=== PATIENT | female | born 1975 | race African-American/Black ===

== ENCOUNTER → 2018-11-15 | Outpatient (CLI) | payer MEDICARE, MEDICAID ==
[~2018-11-15] MED LIST: ALPR2TAB2 PO; AZAT50TA PO; BACL10TA PO; CHOL200074 PO; CYCL10TA2 PO; FAMO20TA5 PO; FENT1PAT13 TP; GABA300C18 PO; HYDR200T5 PO; HYDR200T71 PO; LINZESS145 MCG PO; MELO7.5T29 PO; METF500T16 PO; METO-239 PO; MOME13HF2 IH; OMEP20TA8 PO; OXYC1TAB15 PO; PRED2.5T PO; TRAM50TA PO; VALA1000 PO; ZOLP10TA PO
[2018-11-15 11:55] VITALS: BP 105/61
[2018-11-15 13:55] LABS: BASO % 1 % (0-3); EOS # 0.1 x10^3/uL (0.0-0.7); EOS % 2 % (0-3); HEMATOCRIT 42.3 % (36.0-47.0); HEMOGLOBIN 13.9 g/dL (12.0-15.5); LYMPH # 2.6 x10^3/uL (1.0-4.8); LYMPH % 62 % (24-48); MEAN CORPUSCULAR HEMOGLOBIN 27 pg (25-35); MEAN CORPUSCULAR HGB CONC 33 g/dL (31-37); MEAN CORPUSCULAR VOLUME 82 fL (79-100); MONO # 0.3 x10^3/uL (0.0-1.1); MONO % 7 % (0-9); NEUT # 1.1 x10^3uL (1.8-7.7); NEUT % 27 % (31-73); PLATELET COUNT 242 x10^3/uL (140-400); RED BLOOD COUNT 5.18 x10^6/uL (3.50-5.40); RED CELL DISTRIBUTION WIDTH 13.1 % (11.5-14.5); WHITE BLOOD COUNT 4.1 x10^3/uL (4.0-11.0)
[2018-11-15 14:55] LABS: ALBUMIN 4.4 g/dL (3.4-5.0); C-REACTIVE PROTEIN 2.8 mg/L (0-3.3); CALCIUM 9.6 mg/dL (8.5-10.1); CREATININE 0.6 mg/dL (0.6-1.0); GFR 133.3; POTASSIUM 4.1 mmol/L (3.5-5.1); TOTAL BILIRUBIN 0.7 mg/dL (0.2-1.0); TOTAL PROTEIN 8.6 g/dL (6.4-8.2)
[2018-11-15 16:17] LABS: BILIRUBIN,URINE NEGATIVE (NEG); CLARITY,URINE CLEAR; COLOR,URINE YELLOW; NITRITE,URINE NEGATIVE (NEG); PH,URINE 5.5; PROTEIN,URINE NEGATIVE (NEG-TRACE); UROBILINOGEN,URINE 0.2 mg/dL (0.2 mg/dL)
[2018-11-15 16:54] LABS: BACTERIA,URINE FEW /HPF (0-FEW); RBC,URINE OCC /HPF (0-2); SQUAMOUS EPITHELIAL CELL,UR FEW /LPF; WBC,URINE OCC /HPF (0-4)
[2018-11-17 12:08] LABS: C3 COMPLEMENT 181 mg/dL (82-167); C4 COMPLEMENT 38 mg/dL (14-44)
[2018-11-18 20:11] LABS: ANA INTERP Negative (.)
== END | disposition home or self-care (01) ==
LOC: LAB 12:25
PROVIDERS: ATTEND Internal Medicine Rheumatology
DX: M32.8 Other forms of systemic lupus erythematosus (principal)
CPT/HCPCS: 36415; 80053; 81001; 85025; 85651; 86038; 86140; 86160

== ENCOUNTER → 2018-12-16 | Outpatient (CLI) | payer MEDICARE, MEDICAID ==
[2018-12-13 13:27] VITALS: BP 116/73
--- NOTE | 2018-12-16 17:38 | KCIC ---
Bilateral digital screening mammograms with 3-D tomosynthesis: Reason for examination: Routine baseline screening. Bilateral mammograms in CC and oblique projections were obtained with 2-D imaging and 3-D tomosynthesis imaging on a Siemens Inspiration unit and reviewed on the workstation. Interpretation was made with the benefit of CAD. The skin and nipples show no abnormalities. No abnormal axillary lymph nodes are seen. The breast parenchyma shows scattered fatty and fibroglandular density. (Breast density: Category B.) There are no dominant masses, suspicious calcifications or architectural distortion. Impression: No evidence of malignancy. Recommend routine screening. BI-RAD Category 1: Negative. "Our facility is accredited by the [employer] Mammography [employer]." This patient's information has been entered into a reminder system for the patient to be notified with the results of her examination and a target date for the next mammogram. Electronically signed by: Negrita Reyes MD (12/16/2018 5:35 PM) [id number]
== END | disposition home or self-care (01) ==
LOC: KCIC MAMMO 13:15
PROVIDERS: ATTEND Obstetrics & Gynecology
DX: Z12.31 Encounter for screening mammogram for malignant neoplasm of breast (principal)
CPT/HCPCS: 77063; 77067

== ENCOUNTER → 2020-01-29 | Outpatient (CLI) | payer MEDICARE, MEDICAID ==
[2020-01-13 13:23] VITALS: BP 99/65
[~2020-01-29] MED LIST changes: +TIZA4TAB2 PO; +TOPI25TA7 PO; -VALA1000 PO; +VALA10008 PO
--- NOTE | 2020-01-29 17:59 | KCIC ---
Bilateral digital screening mammograms with 3-D tomosynthesis: Reason for examination: Routine screening. Comparison is made to previous study dated 12/16/2018. Bilateral mammograms in CC and oblique projections were obtained with 2-D imaging and 3-D tomosynthesis imaging on a Siemens Inspiration unit and reviewed on the workstation. Interpretation was made with the benefit of CAD. The skin and nipples show no abnormalities. No abnormal axillary lymph nodes are seen. The breast parenchyma is heterogeneously dense. (Breast density: Category C.) There are no dominant masses, suspicious calcifications or architectural distortion. Impression: No evidence of malignancy. Recommend routine screening. Your patient's mammogram demonstrates that she has dense breast tissue (breast density category C or D), which could hide abnormalities, and if she has other risk factors for breast cancer that have been identified, she might benefit from supplemental screening tests that may be suggested by you as her ordering physician. Dense breast tissue, in and of itself, is a relatively common condition. Therefore, this information is not provided to cause undue concern, but rather to raise your awareness and to promote discussion with your patient regarding the presence of other risk factors, in addition to dense breast tissue. Your patient's mammography results will be sent to her. BI-RAD Category 1: Negative. "Our facility is accredited by the [employer] Mammography [employer]." This patient's information has been entered into a reminder system for the patient to be notified with the results of her examination and a target date for the next mammogram. Electronically signed by: Negrita Reyes MD (01/29/2020 5:56 PM) [id number]
== END | disposition home or self-care (01) ==
LOC: KCIC MAMMO 13:37
PROVIDERS: ATTEND Obstetrics & Gynecology
DX: Z12.31 Encounter for screening mammogram for malignant neoplasm of breast (principal)
CPT/HCPCS: 77063; 77067

== ENCOUNTER → 2020-02-16 | Outpatient (CLI) | payer MEDICARE, MEDICAID ==
[2020-01-13 13:23] VITALS: BP 99/65
[~2020-02-16] MED LIST changes: +ASCO100T4 PO; +HYDR-2765 PO; +MULT-766 PO
--- NOTE | 2020-02-16 19:55 | KCIC ---
Cervical spine 4 views: Reason for examination: Degenerative disc disease. The odontoid process appears to be intact and normally centered between the lateral masses of C1. The cervical vertebral bodies appear to be normally aligned anteriorly and posteriorly with no acute fracture or subluxation seen. There has been anterior fusion with plate and screws present at the C5-6 disc level. Posterior elements are intact. Remaining intervertebral discs are maintained. Prevertebral soft tissues are normal. IMPRESSION: No acute abnormality evident in the cervical spine. Postop changes with fusion at the C5-6 disc level. Electronically signed by: Negrita Reyes MD (02/16/2020 7:52 PM) [facility]
== END | disposition home or self-care (01) ==
LOC: KCIC 13:39
PROVIDERS: ATTEND Family Medicine
DX: M50.30 Other cervical disc degeneration, unspecified cervical region (principal); Z98.1 Arthrodesis status
CPT/HCPCS: 72040

== ENCOUNTER → 2020-02-26 | Outpatient (CLI) | payer MEDICARE, MEDICAID ==
[2020-01-13 13:23] VITALS: BP 99/65
[~2020-02-26] MED LIST changes: -ASCO100T4 PO; -HYDR-2765 PO; -MULT-766 PO
--- NOTE | 2020-02-26 14:42 | KCIC ---
MRI of the cervical spine without contrast 02/26/2020 CLINICAL HISTORY: Neck pain. History of cervical fusion. TECHNIQUE: Unenhanced T1-weighted, T2-weighted and inversion recovery sagittal and gradient echo and T2-weighted axial images of the cervical spine were obtained. FINDINGS: Comparison is made to radiographs of the cervical spine dated 02/16/20. Minimal lateral curvature of the cervical spine is seen convex to the right. There is slight reversal of the normal cervical lordosis. The patient is post anterior discectomy and fusion using an anterior plate, bone screws and bone graft material at C5-6. Degenerative signal changes are seen involving the remaining discs of the cervical spine. Degenerative signal changes are seen within the marrow surrounding these discs. A 7 mm hemangioma is seen involving the T1 vertebral body. No area of abnormal signal intensity is seen involving the cervical spinal cord. At the C2-3 disc space there is a minimal generalized disc bulge. Degenerative changes are seen involving the uncovertebral and facet joints, left greater than right. These findings do not result in significant central spinal canal stenosis. No neural foraminal stenosis is seen. At the C3-4 disc space there is a mild generalized disc bulge. This is eccentric to the right. Superimposed on this disc bulge is a right lateral focal disc protrusion. This measures 3.5 mm in AP diameter. Degenerative changes are seen involving the uncovertebral and facet joints bilaterally. These findings do not result in significant central spinal canal or neural foraminal stenosis. At the C4-5 disc space there is a mild to moderate generalized disc bulge. This is eccentric to the left. Degenerative changes are seen involving the uncovertebral and facet joints, left greater than right. These findings efface the anterior and posterior CSF resulting in mild central spinal canal stenosis without evidence of cord impingement. Mild to moderate left greater than right neural foraminal stenosis is seen. At the C5-6 level degenerative changes are seen involving the uncovertebral and facet joints bilaterally. These findings do not result in significant central spinal canal or neural foraminal stenosis. At the C6-7 disc space there is a mild generalized disc bulge. Degenerative changes are seen involving the uncovertebral and facet joints bilaterally. These findings do not result in significant central spinal canal or neural foraminal stenosis. At the C7-T1 disc space there is a minimal generalized disc bulge. Degenerative changes are seen involving the facet joints bilaterally. These findings do not result in significant central spinal canal or neural foraminal stenosis. IMPRESSION: 1. Post anterior discectomy and fusion at C5-6. 2. Degenerative changes are seen throughout the cervical spine. These findings result in mild central spinal canal stenosis without evidence of cord impingement at C4-5. Mild to moderate left greater than right neural foraminal stenosis is seen at C4-5. Electronically signed by: Murali Barth MD (02/26/2020 2:39 PM) [id number]
== END ==
LOC: KCIC MRI 12:20
PROVIDERS: ATTEND Family Medicine
DX: M48.02 Spinal stenosis, cervical region (principal); M50.121 Cervical disc disorder at C4-C5 level with radiculopathy; M47.812 Spondylosis without myelopathy or radiculopathy, cervical region
CPT/HCPCS: 72141

== ENCOUNTER → 2020-03-15 | Outpatient (CLI) | payer MEDICARE, MEDICAID ==
[2020-03-11 14:09] VITALS: BP 108/67
[~2020-03-15] MED LIST changes: +ASCO100T4 PO; +HYDR-2765 PO; +MULT-766 PO
--- NOTE | 2020-03-15 15:01 | PDOC1 ---
INITIAL PAIN CONSULT DATE OF SERVICE: DOS: DATE: 03/15/20 TIME: 14:51 CHIEF COMPLAINT: Chief Complaint: Neck and left upper extremity pain HISTORY OF PRESENT ILLNESS: 44-year-old female presents history of pain base the neck and left upper extremity for approximately 5 months now not result of any specific injury or accident that she is aware of but has been getting worse with time and repetitive motion of the left upper extremity. Patient reports it is worse with reaching lifting items with her left arm repetitive motions reaching up over her head with her left hand patient reports it wakes her from sleep release twice a night has over the past few months does not affect her bowel bladder control significantly does not affect her ability to walk although she feels off balance when her left arm is hurting patient reports she has had epidural injections in the past physical therapy in the past as well also status post anterior cervical discectomy and fusion. This was performed about 5 years ago. Patient cries the pain now is throbbing and shooting in the base the neck radiating in the arm biceps triceps loss of the anterior posterior deltoid lateral deltoid forearm involving the anterior posterior aspect as well as the entire hand with numbness and tingling in all fingers. Patient reports fatigability left upper extremity has not been dropping any items or have any motor loss but has significant fatigability with activity. Patient describes her disability rating from 0-10 10 being the worst is a 5 with family home responsibilities social activity 7 with recreation occupation 6 with sexual behavior 3 with life support activities. PAST MEDICAL HISTORY: PMH: Lupus, arthritis, esophageal reflux, ulcerative colitis, tachycardia, sleep apnea, fatty liver change, depression, anxiety, PTSD PREVIOUS SURGERIES: Past Surgical Hx: Anterior cervical discectomy and fusion 5 years ago, tubal ligation, partial hysterectomy, cholecystectomy CURRENT MEDICATIONS: Current Meds: Active Scripts Medications Dose Route/Sig Max Daily Dose Days Date Category Vitamin C (Ascorbic Acid) 100 Mg Tablet 2 Tab PO DAILY 30 03/15/20 Reported Multivitamin 1 Each Tablet 1 Each PO DAILY 03/15/20 Reported Omeprazole 20 Mg Tablet. 1 Tab PO DAILY 03/15/20 Reported Hydrocodone-Apap 7.5-325 (Hydrocodone Bit/Acetaminophen) 1 Tab Tablet 1 Tab PO PRN Q6HRS PRN 03/15/20 Reported Topiramate 25 Mg Tablet 25 Mg PO BID 12/26/18 Reported Tizanidine Hcl 4 Mg Tablet 25 Mg PO DAILY PRN 12/26/18 Reported Dulera 100 Mcg/5 Mcg Inhaler (Mometasone/Formoterol) 13 Gm Hfa.aer.ad 2 Puff IH BID 02/02/16 Reported Gabapentin (Gabapentin) 300 Mg Capsule 300 Mg PO TID 02/02/16 Reported Linzess (Linaclotide) 145 Mcg Capsule 145 Mcg PO 02/02/16 Reported Metformin Hcl 500 Mg Tablet 500 Mg PO BIDWMEALS 07/19/15 Reported Ambien (Zolpidem Tartrate) 10 Mg Tablet 10 Mg PO HS PRN 09/14/14 Reported Valacyclovir (Valacyclovir Hcl) 1,000 Mg Tablet 1,000 Mg PO PRN PRN 09/14/14 Reported Vitamin D-3 (Cholecalciferol (Vitamin D3)) 2,000 Unit Capsule 1,000 Unit PO DAILY 09/14/14 Reported Metoprolol Succinate ( Xl ) (Metoprolol Succinate) 25 Mg Tab.er.24h 25 Mg PO DAILY 09/14/14 Reported Hydroxychloroquine Sulfate 200 Mg Tablet 200 Mg PO BID 09/14/14 Reported ALLERGIES; Allergies: Coded Allergies: Sulfa (Sulfonamide Antibiotics) (Verified Allergy, Intermediate, Unknown, 03/11/20) iodine (Verified Allergy, Intermediate, Unknown, 03/11/20) latex (Verified Allergy, Intermediate, Unknown, 03/11/20) levofloxacin (Verified Allergy, Intermediate, fixed drug eruption , ) morphine (Verified Allergy, Intermediate, Unknown, 03/11/20) sulfamethoxazole (Verified Allergy, Intermediate, Unknown, 03/11/20) trimethoprim (Verified Allergy, Intermediate, Unknown, 03/11/20) FAMILY HISTORY: Family Hx: Lupus, fibromyalgia, gastroesophageal reflux, irritable bowel syndrome, cancers, blood clots, asthma SOCIAL HISTORY: Social Hx: Patient drinks alcohol about 2 glasses a month does not smoke not use any illegal illicit recreational drugs is single lives locally in [facility] and is currently on disability not related to current pain issue REVIEW OF SYSTEMS: ROS: Positive for those items mentioned in history of present illness, all systems are reviewed, otherwise negative, is complete full and well-documented on patient's chart PHYSICAL EXAM: VS: Blood pressure is 113/72 pulse 85 respirations 16 temperature 96 F height is 5 foot 9 inches weight is 213 pounds PE: PHYSICAL EXAMINATION: GENERAL: The patient is awake, alert, oriented, appropriate, very pleasant demeanor HEENT: Shows normocephalic, atraumatic. Extraocular movements are intact and symmetrical. Oral cavity: Mucous membranes moist and pink. Dentition is intact. NECK: Shows anterior throat supple without palpable lymphadenopathy noted. Swallow reflex symmetrical. CHEST: Shows normal on inspection. Breath sounds are clear bilaterally, no rales rhonchi or wheezes auscultated. HEART: Shows S1, S2 clear. No murmurs auscultated. ABDOMEN: Soft, nontender, nondistended, obese. no palpable organomegaly is noted. No rebound or guarding demonstrated. BACK: Shows spine grossly in the midline. Normal-appearing cervical lordotic curvature, cervical paraspinous posterior shows symmetrical on inspection with palpation some moderate tenderness diffusely in the inferior aspect of the cervical paraspinous muscles bilaterally but is symmetrical without evidence of atrophy hypertrophy no trigger points patient was full rotation motion both laterally greater than 45 degrees right and left was full extension full forward flexion without significant increase in pain. There is slightly increased thoracic kyphosis, some minor flattening of the lumbar lordotic curvature. Lumbar paraspinous muscles show symmetrical on inspection, on palpation shows some moderate tenderness diffusely throughout the upper, middle and lower distribution of the paraspinous muscles bilaterally without trigger points or radiation of pain. EXTREMITIES: Upper extremities show deep tendon reflexes 2+ in the biceps and triceps tendons. Motor exam is 5 on a scale of 5 with right micropaleontologist strength, biceps and triceps flexion and 4/5 on the left. Peripheral pulses are 2+ radial. No peripheral edema is noted bilaterally. Upper extremities are warm and dry to touch, equal in color and appearance. Shoulder shrug is strong and intact without loss of strength on resistance as is abduction of the shoulder 90 degrees without loss of strength or resistance with both these maneuvers do increase pain in the base the neck on the left side and shoulder. SKIN: Shows warm and dry, good turgor. No edema. No sores, rashes or bruising throughout. IMPRESSION: Impression: 44-year-old female with approximate 5-month history pain base the neck and left upper extremity radicular fashion MRI scan cervical spine demonstrating previous anterior discectomy and fusion at C5-6 with degenerative changes throughout the cervical spine resulting in mild central spinal canal stenosis without evidence of cord impingement at C4-5 with mild to moderate left greater than right neuroforaminal stenosis at C4-5 Lupus Arthritis Plan: Options were discussed with the patient including conservative medical management, physical therapies and interventional techniques. Patient would like to pursue interventional techniques. We discussed a cervical epidural steroid injection using descriptions as well as anatomical model to describe the procedure. Patient has physical therapy later this afternoon and we will reschedule for cervical epidural steroid injection with 10 mg of Valium premedication for anxiety. Patient will continue with physical therapy as well as strengthening and stretching exercise on her own and return to clinic for cervical epidural steroid injection as scheduled. Patient will have a refrigerated national truck driver with her and is aware of this requirement. NIKKI BRYANT MD Mar 15, 2020 15:00
== END | disposition home or self-care (01) ==
LOC: PNCL 13:23
PROVIDERS: ATTEND Anesthesiology
DX: M54.2 Cervicalgia (principal); M79.602 Pain in left arm; M19.90 Unspecified osteoarthritis, unspecified site; M48.02 Spinal stenosis, cervical region; K21.9 Gastro-esophageal reflux disease without esophagitis; G47.30 Sleep apnea, unspecified; F41.9 Anxiety disorder, unspecified; F32.9 Major depressive disorder, single episode, unspecified; Z98.890 Other specified postprocedural states; Z98.51 Tubal ligation status; Z83.6 Family history of other diseases of the respiratory system
CPT/HCPCS: G0463

== ENCOUNTER → 2020-03-29 | Outpatient (CLI) | payer MEDICARE, MEDICAID ==
[2020-03-11 14:09] VITALS: BP 108/67
[~2020-03-29] MED LIST changes: +methylPREDNISolone ACETATE 40 MG/ML VIAL. ONE; +methylPREDNISolone ACETATE 80 MG/ML VIAL. ONE
--- NOTE | 2020-03-29 12:19 | PDOC ---
Progress Note - Pain Clinic Date of Service: DOS: DATE: 03/29/20 TIME: 12:15 Diagnosis: Dx: Cervical radiculopathy with cervical degenerative disc disease cervical spinal stenosis and post cervical laminectomy syndrome History or Present Illness: HPI: 44-year-old female returns follow-up status post initial evaluation and preauthorization for cervical epidural steroid injection patient returns now also had given Valium 10 mg for premedication and patient does have her mother with her to drive today. Patient reports still significant pain base the neck and shoulders mostly in the left arm as previously radiating from the shoulder into the forearm into the hands and fingers causing numbness and tingling patient describes it as aching shooting tingling stabbing radiating in the left upper extremity base the neck as well the upper back and scapula. Patient ports is an 8 on scale 10 is worse with the past week 6 on average 5 its least is a 6 today. Patient reports no new motor or sensory deficits no new changes. Physical Exam: VS: Blood pressure is 118/64 pulse 76 respirations 16 temperature is 98.0 F weight is 212 pounds PE: PHYSICAL EXAMINATION: GENERAL: The patient is awake, alert, oriented, appropriate, very pleasant demeanor HEENT: Shows normocephalic, atraumatic. Extraocular movements are intact and symmetrical. Oral cavity: Mucous membranes moist and pink. NECK: Shows anterior throat supple without palpable lymphadenopathy noted. Swallow reflex symmetrical. CHEST: Shows normal on inspection. Breath sounds are clear bilaterally. HEART: Shows S1, S2 clear. No murmurs auscultated. ABDOMEN: Soft, nontender, nondistended. No palpable organomegaly is noted. No rebound or guarding demonstrated. BACK: Shows spine grossly in the midline. Normal-appearing cervical lordotic curvature. There is slightly increased thoracic kyphosis, some minor flattening of the lumbar lordotic curvature. Lumbar paraspinous muscles show symmetrical on inspection, on palpation shows some moderate tenderness diffusely throughout the upper, middle and lower distribution of the paraspinous muscles bilaterally and also into the lower thoracic paraspinous musculature, firm and tender, but without specific trigger points, without radiation of pain. The patient has good rotational motion of the lumbar spine, both laterally as well as extension and flexion without significant difficulty. No tenderness over the spinous processes, sacrum or sacroiliac regions. EXTREMITIES: Upper extremities show deep tendon reflexes 2+ in the biceps and triceps tendons. Motor exam is 5 on a scale of 5 with right tour consultant strength, biceps and triceps flexion and 4/5 on the left. Peripheral pulses are 2+ posterior radial. No peripheral edema is noted bilaterally. Upper extremities are warm and dry to touch, equal in color and appearance. SKIN: Shows warm and dry, good turgor. No edema. No sores, rashes or bruising throughout. Procedure: Procedure: Options were discussed with the patient. Patient's old chart was reviewed as her current medication regimen updated current review of systems updated today as well. We will proceed with a cervical epidural steroid injection today with fluoroscopic guidance. Risks were discussed including but not limited to: Bleeding, infection, possibility of epidural hematoma and subsequent neurological compromise, dural puncture, headaches, spinal cord and/or nerve damage, side effects of steroid medication, and poor results regarding pain control. Patient understands wished to proceed. Patient will return to clinic in approximately 2 weeks for follow-up was counseled as to return appointment activity level and side effects to be aware of. Medication Injected: Med Injected: Procedure cervical epidural steroid injection at the C6-7 level, using local anesthetic under sterile prep and drape using C-arm fluoroscopic guidance under local anesthesia medications injected ; 120 mg Depo-Medrol + 5 mL normal saline and 2 mL contrast; condition at discharge is stable patient tolerated procedure well. and had no complications Condition at Discharge: Condition at Discharge: Condition at discharge is stable patient tolerated the procedure well had no complications. NIKKI BRYANT MD Mar 29, 2020 12:19
== END ==
LOC: PNCL 11:08
PROVIDERS: ATTEND Anesthesiology
DX: M50.123 Cervical disc disorder at C6-C7 level with radiculopathy (principal); M48.02 Spinal stenosis, cervical region; F41.9 Anxiety disorder, unspecified; F32.9 Major depressive disorder, single episode, unspecified; K21.9 Gastro-esophageal reflux disease without esophagitis; Z88.2 Allergy status to sulfonamides; Z88.8 Allergy status to other drugs, medicaments and biological substances; Z79.899 Other long term (current) drug therapy
CPT/HCPCS: 62321; J1030; J1040

== ENCOUNTER → 2020-05-24 | Outpatient (CLI) | payer MEDICARE, MEDICAID ==
[2020-05-17 13:31] VITALS: BP 122/52
[~2020-05-24] MED LIST changes: -methylPREDNISolone ACETATE 40 MG/ML VIAL. ONE; -methylPREDNISolone ACETATE 80 MG/ML VIAL. ONE
--- NOTE | 2020-05-24 13:39 | PDOC ---
Progress Note - Pain Clinic Date of Service: DOS: DATE: 05/24/20 TIME: 13:34 Diagnosis: Dx: Cervical radiculopathy with cervical degenerative disc disease cervical spinal stenosis and post cervical laminectomy syndrome Lumbar radiculopathy with lumbar degenerative disc disease History or Present Illness: HPI: 45-year-old female returns follow-up status post cervical epidural steroid injection x1. Patient reports about 75% improvement for the first week then the pain returning gradually into the base the neck and left upper extremity and is back to baseline at this time. Patient also reports pain in the mid back in the low back with radiating pain to posterior left gluteus posterior thigh posterior calf to the level of the ankle on the left side. Patient describes the pain in the neck and arm is aching sharp dull tight shooting low back is tingling cramping also shooting and tight as well as aching in the back patient reports both are constant severe can be unbearable on and off in intensity but always present. Patient reports it wakes her from sleep at least every 3-4 hours for either her neck or her low back and leg patient reports her main complaint is her neck and left upper extremity however patient reports her pain a 6 on scale 10 is worse over the past week 6 on average for its least and is a 6 today. Patient reports her last injection was very uncomfortable and we did schedule a second injection today with p.o. Valium prior to the procedure however she did not take that and brought the prescription back to be destroyed. Patient is requesting other alternatives we did discuss some possibilities of physical therapies to be scheduled in the future as well. Patient reports no new motor or sensory deficits no bowel or bladder incontinence Physical Exam: VS: Blood pressure is 128/75 pulse 93 respirations 16 temperature 90.5 F height is 5 foot 9 inches weight is 220 pounds PE: PHYSICAL EXAMINATION: GENERAL: The patient is awake, alert, oriented, appropriate, very pleasant demeanor HEENT: Shows normocephalic, atraumatic. Extraocular movements are intact and symmetrical. NECK: Shows anterior throat supple without palpable lymphadenopathy noted. Swallow reflex symmetrical. CHEST: Shows normal on inspection. Breath sounds are clear bilaterally. HEART: Shows S1, S2 clear. No murmurs auscultated. ABDOMEN: Soft, nontender, nondistended. No palpable organomegaly is noted. No rebound or guarding demonstrated. BACK: Shows spine grossly in the midline. Normal-appearing cervical lordotic curvature. Cervical paraspinous muscles show symmetrical on inspection and palpation some moderate tenderness diffusely throughout the middle and lower distribution the paraspinous muscles bilaterally but only diffusely without significant radiation no trigger points no atrophy hypertrophy. Patient shows full rotation motion cervical spine both laterally greater than 45 degrees closer 9 degrees well is full extension full forward flexion without significant increase in pain. There is slightly increased thoracic kyphosis, some minor flattening of the lumbar lordotic curvature. Lumbar paraspinous muscles show sy mmetrical on inspection, on palpation shows some moderate tenderness diffusely throughout the upper, middle and lower distribution of the paraspinous muscles bilaterally, but without specific trigger points, without radiation of pain. The patient has good rotational motion of the lumbar spine, both laterally as well as extension and flexion without significant difficulty. No tenderness over the spinous processes, sacrum or sacroiliac regions. EXTREMITIES: Lower extremities show deep tendon reflexes 2+ in the patellar and tendo calcaneus tendons. Motor exam is 5 on a scale of 5 with right dorsiflexion, extension, quadriceps and hamstring flexion and 4/5 on the left. Peripheral pulses are 1+ posterior tibial. No peripheral edema is noted bilaterally. Lower extremities are warm and dry to touch, equal in color and appearance. Upper extremities show deep tendon reflexes at 2+ in the biceps triceps tendons motor exam and strong with adapted physical education teacher strength rated 5 out of 5 on the right and 4-5 on the left as is bicep and tricep flexion. Peripheral pulses are 2+ radial no peripheral edema is noted bilaterally. Shoulder shrug is strong and intact with some moderate tenderness only on the left with resistance but no loss of strength on resistance this is true with abduction of the shoulder 90 degrees bilaterally as well. SKIN: Shows warm and dry, good turgor. No edema. No sores, rashes or bruising throughout. Procedure: Procedure: Options were discussed with the patient and patient's mother who is present with her at her visit today. We will order physical therapy for the cervical distribution upper back mid back as well as the low back as she has done well with this in the past. Also will check MRI scan of the lumbar spine as she has clinical radiculopathy in the left lower extremity with some minor weakness on the left compared to the right with exam. Patient will follow up after MRI scan is performed we will discuss results at that time. Medication Injected: Med Injected: None Condition at Discharge: Condition at Discharge: Condition at discharge is stable. NIKKI BRYANT MD May 24, 2020 13:39
== END | disposition home or self-care (01) ==
LOC: PNCL 13:03
PROVIDERS: ATTEND Anesthesiology
DX: M50.10 Cervical disc disorder with radiculopathy, unspecified cervical region (principal); M48.02 Spinal stenosis, cervical region; M51.16 Intervertebral disc disorders with radiculopathy, lumbar region; M96.1 Postlaminectomy syndrome, not elsewhere classified; J45.909 Unspecified asthma, uncomplicated; K21.9 Gastro-esophageal reflux disease without esophagitis; E11.9 Type 2 diabetes mellitus without complications; F41.9 Anxiety disorder, unspecified; F32.9 Major depressive disorder, single episode, unspecified; Z90.49 Acquired absence of other specified parts of digestive tract; Z90.710 Acquired absence of both cervix and uterus; Z98.51 Tubal ligation status; Z98.890 Other specified postprocedural states; Z79.899 Other long term (current) drug therapy; Z79.84 Long term (current) use of oral hypoglycemic drugs; Z72.89 Other problems related to lifestyle; Z88.1 Allergy status to other antibiotic agents; Z88.2 Allergy status to sulfonamides; Z91.040 Latex allergy status; Z91.041 Radiographic dye allergy status
CPT/HCPCS: G0463

== ENCOUNTER → 2020-06-08 | Outpatient (CLI) | payer MEDICARE, MEDICAID ==
[2020-05-17 13:31] VITALS: BP 122/52
--- NOTE | 2020-06-08 18:29 | KCIC ---
MRI of the lumbar spine without contrast 06/08/2020 CLINICAL HISTORY: Low back pain which radiates down the left leg for one year TECHNIQUE: Unenhanced T1-weighted and T2-weighted sagittal and axial and inversion recovery sagittal images of the lumbar spine were obtained. FINDINGS: Minimal S-shaped curvature of the thoracolumbar spine is seen. The morphology and signal ch aracteristics of all the disks of the lumbar spine are within normal limits. The marrow signal of the visualized bony structures is within normal limits. The conus medullaris is normal morphology, posit ion, and signal characteristics. On the axial images throughout the lumbar disc spaces very mild degenerative changes are seen consist ing of minimal to mild generalized disc bulges, degenerative changes involving the facet joints and m ild ligamentum flavum hypertrophy. These findings do not result in significant central spinal canal o r neural foraminal stenosis at any level. IMPRESSION: The changes of mild degenerative disc disease are seen involving the lumbar spine. These findings do not result in significant central spinal canal or neural foraminal stenosis at any level. Electronically signed by: Murali Barth MD (06/08/2020 6:27 PM) [id number]
== END | disposition home or self-care (01) ==
LOC: KCIC MRI 13:05
PROVIDERS: ATTEND Anesthesiology
DX: M51.16 Intervertebral disc disorders with radiculopathy, lumbar region (principal); K21.9 Gastro-esophageal reflux disease without esophagitis; E11.9 Type 2 diabetes mellitus without complications; F41.9 Anxiety disorder, unspecified; F32.9 Major depressive disorder, single episode, unspecified; J45.909 Unspecified asthma, uncomplicated; Z90.49 Acquired absence of other specified parts of digestive tract; Z90.710 Acquired absence of both cervix and uterus; Z98.51 Tubal ligation status; Z98.890 Other specified postprocedural states; Z88.0 Allergy status to penicillin; Z88.1 Allergy status to other antibiotic agents; Z91.040 Latex allergy status; Z88.8 Allergy status to other drugs, medicaments and biological substances; Z91.041 Radiographic dye allergy status; Z88.6 Allergy status to analgesic agent; Z79.899 Other long term (current) drug therapy; Z79.84 Long term (current) use of oral hypoglycemic drugs
CPT/HCPCS: 72148

== ENCOUNTER → 2020-07-19 | Outpatient (CLI) | payer MEDICARE, MEDICAID ==
[2020-07-15 13:33] VITALS: BP 130/63
--- NOTE | 2020-07-19 14:30 | PDOC ---
Progress Note - Pain Clinic Date of Service: DOS: DATE: 07/19/20 TIME: 14:27 Diagnosis: Dx: Cervical radiculopathy with cervical degenerative disc disease cervical spinal stenosis and post cervical laminectomy syndrome Lumbar radiculopathy with lumbar degenerative disc disease History or Present Illness: HPI: 45-year-old female returns in follow-up status post cervical epidural steroid injection and physical therapy. We ordered a MRI scan of the lumbar spine she is having significant pain in the low back and left lower extremity. Patient reports this continues we did review her MRI scan with her today showing some mild to minimal generalized disc bulges throughout the lumbar spine but without central spinal canal stenosis or neuroforaminal stenosis. Patient report still significant pain in the low back itself which is her chief complaint is her neck is doing better with some physical therapy that she is currently undergoing. Patient reports her pain is in the low back posterior gluteus lateral thigh anterior thigh medial thigh on the left side primarily into the lower leg and calf on the left both legs medially and posteriorly patient ports a 7 on scale 10 is worse over the past week 5 on average 5 its least and is a 5 today patient reports is aching radiating can be constant sharp worse with walking standing changing positions better with sitting or laying down although awakens her from sleep about once every 6 hours. Patient reports she does have some increase in urinary frequency but no complete loss of continence. Physical Exam: VS: Blood pressure 112/98 pulse 81 respirations 16 temperature 98.1 F height is 5 f oot 9 inches weight is 219 pounds PE: PHYSICAL EXAMINATION: GENERAL: The patient is awake, alert, oriented, appropriate, very pleasant demeanor HEENT: Shows normocephalic, atraumatic. Extraocular movements are intact and symmetrical. NECK: Shows anterior throat supple without palpable lymphadenopathy noted. Swallow reflex symmetrical. CHEST: Shows normal on inspection. Breath sounds are clear bilaterally. HEART: Shows S1, S2 clear. No murmurs auscultated. ABDOMEN: Soft, nontender, nondistended, obese. No palpable organomegaly is noted. No rebound or guarding demonstrated. BACK: Shows spine grossly in the midline. Normal-appearing cervical lordotic curvature. There is slightly increased thoracic kyphosis, some flattening of th e lumbar lordotic curvature. Lumbar paraspinous muscles show symmetrical on inspection, on palpation shows some moderate tenderness diffusely throughout the upper, middle and lower distribution of the paraspinous muscles, but without specific trigger points, without radiation of pain. The patient has good rotational motion of the lumbar spine, both laterally as well as extension and flexion without significant difficulty. No tenderness over the spinous processes, sacrum or sacroiliac regions. EXTREMITIES: Lower extremities show deep tendon reflexes 2+ in the patellar and tendo calcaneus tendons. Motor exam is 5 on a scale of 5 with right dorsiflexion, extension, quadriceps and hamstring flexion and 4/5 on the left. Peripheral pulses are 1+ posterior tibial. No peripheral edema is noted bilaterally. Lower extremities are warm and dry to touch, equal in color and appearance. SKIN: Shows warm and dry, good turgor. No edema. No sores, rashes or bruising throughout. Procedure: Procedure: Options discussed with the patient. Patient chart reviews her current medication regimen updated current review of systems updated today as well we will order physical therapy for the lumbar spine with strengthening stretching exercises heat massage therapy as well as lumbar traction. Patient will continue with physical therapy for the upper back and neck as well. We discussed that if not significant improved we will revisit and potentially proceed with lumbar epidural steroid injection. Patient understands and agrees and will start physical therapy which will be ordered today. Medication Injected: Med Injected: None Condition at Discharge: Condition at Discharge: Condition at discharge is stable. NIKKI BRYANT MD Jul 19, 2020 14:30
== END | disposition home or self-care (01) ==
LOC: PNCL 13:21
PROVIDERS: ATTEND Anesthesiology
DX: M50.10 Cervical disc disorder with radiculopathy, unspecified cervical region (principal); M48.02 Spinal stenosis, cervical region; M51.16 Intervertebral disc disorders with radiculopathy, lumbar region; J45.909 Unspecified asthma, uncomplicated; F32.9 Major depressive disorder, single episode, unspecified; F41.9 Anxiety disorder, unspecified; K21.9 Gastro-esophageal reflux disease without esophagitis; M79.7 Fibromyalgia; E11.9 Type 2 diabetes mellitus without complications; Z72.89 Other problems related to lifestyle; Z79.899 Other long term (current) drug therapy; Z98.890 Other specified postprocedural states; Z88.2 Allergy status to sulfonamides; Z88.5 Allergy status to narcotic agent; Z88.8 Allergy status to other drugs, medicaments and biological substances; Z91.041 Radiographic dye allergy status; Z90.49 Acquired absence of other specified parts of digestive tract; Z90.710 Acquired absence of both cervix and uterus; Z98.51 Tubal ligation status
CPT/HCPCS: G0463

== ENCOUNTER → 2021-01-27 | Outpatient (CLI) | payer MEDICARE, MEDICAID ==
[2021-01-27 11:55] VITALS: BP 99/69
--- NOTE | 2021-01-27 13:13 | PDOC ---
Progress Note - Pain Clinic Date of Service: DOS: DATE: 01/27/21 TIME: 13:08 Diagnosis: Dx: Cervical radiculopathy with cervical degenerative disease and cervical spinal stenosis with cervical postlaminectomy syndrome Lumbar radiculopathy with lumbar degenerative disc disease History or Present Illness: HPI: 45-year-old female returns for follow-up status post cervical injection x1 March 2020 with about 75% improvement for the first week then the pain returning patient reports the procedure itself is very uncomfortable and she does not wish to proceed with that again at this point. We did send her for physical therapy in July of this year which she reports was beneficial but as the months have gone by she states having more pain in the base the neck and shoulder specially the left upper extremity with radiating pain in the left arm and hand as well as in the upper back mid back and low back. Patient reports is an 8 on scale 10 is worse over the past week 8 on average 6 its least is 8 today patient scribes aching and tingling radiating constant severe can be unbearable but is on and off in intensity worse with activity worse with using her left upper extremity with repetitive motion reaching overhead with her left arm patient reports generally wakes her from sleep about every 4-5 hours. Patient was recently started on Savella which she is tapering up to a steady dose and reports no side effect so far but no significant decrease in pain as well. Physical Exam: VS: Blood pressure is 111/75 pulse 80 respirations 18 temperature 98.5 F height is 5 feet 9 inches weight is 213 pounds PE: PHYSICAL EXAMINATION: GENERAL: The patient is awake, alert, oriented, appropriate, very pleasant in demeanor. HEENT: Shows normocephalic, atraumatic. Extraocular movements are intact and symmetrical. Oral cavity: Mucous membranes moist and pink. Dentition is intact. NECK: Shows anterior throat supple without palpable lymphadenopathy noted. Swallow reflex symmetrical. CHEST: Shows normal on inspection. Breath sounds are clear bilaterally, no rales rhonchi or wheezes auscultated. HEART: Shows S1, S2 clear. No murmurs auscultated. ABDOMEN: Soft, nontender, nondistended. No palpable organomegaly is noted. BACK: Shows spine grossly in the midline. Normal-appearing cervical lordotic curvature. Cervical paraspinous muscles show symmetrical with inspection on p alpation some moderate tenderness diffusely throughout the upper middle lower distribution the paraspinous muscles bilaterally but without asymmetry or atrophy hypertrophy no trigger points. Patient shows good rotation motion cervical spine both laterally greater than 45 degrees closer to 90 degrees as well as full extension full forward flexion without significant difficulty as w ell. There is some increased thoracic kyphosis, some minor flattening of the lumbar lordotic curvature. Lumbar paraspinous muscles show symmetrical on inspection, on palpation shows some moderate tenderness diffusely throughout the upper, middle and lower distribution of the paraspinous muscles without specific trigger points, without radiation of pain. The patient has good rotational motion of the lumbar spine, both laterally as well as extension and flexion without significant difficulty. No tenderness over the spinous processes, sacrum or sacroiliac regions. EXTREMITIES: Lower extremities show deep tendon reflexes 2+ in the patellar and tendo calcaneus tendons. Motor exam is 5 on a scale of 5 with right dorsiflexion, extension, quadriceps and hamstring flexion and 4/5 on the left. Peripheral pulses are 1+ posterior tibial. No peripheral edema is noted bilaterally. Lower extremities are warm and dry to touch, equal in color and appearance. Upper extremity show deep tendon reflexes 2+ in the bicep tricep tendons, motor exam is strong with 4-5 left director microbiology strength bicep and tricep flexion 5 out of 5 on the right. Peripheral pulses are 2+ radial no peripheral edema is noted. Shoulder shrug is strong and intact without loss of strength on resistance as is abduction of the shoulders at 90 degrees bilaterally. SKIN: Shows warm and dry, good turgor. No edema. No sores, rashes or bruising throughout. Procedure: Procedure: Options were discussed with the patient. Patient's old chart was reviewed as her current medication regimen updated current review of systems updated today as well. We will reorder physical therapy to be done with water therapy. Patient also given Medrol Dosepak which was called into her pressure of her p harmacy with instructions side effects aware of discussed as well. Patient will consider potential reinjection in the future but requests significant sedation and we discussed this would have to be scheduled with anesthesia assistance if necessary in the future. Patient understands and agrees. Patient will follow up at this time after physical therapy. Medication Injected: Med Injected: None Condition at Discharge: Condition at Discharge: Condition at discharge is stable. NIKKI BRYANT MD Jan 27, 2021 13:13
== END ==
LOC: PNCL 12:19
PROVIDERS: ATTEND Anesthesiology
DX: M51.16 Intervertebral disc disorders with radiculopathy, lumbar region (principal); M48.02 Spinal stenosis, cervical region; M96.1 Postlaminectomy syndrome, not elsewhere classified; M50.10 Cervical disc disorder with radiculopathy, unspecified cervical region
CPT/HCPCS: 99212; G0463

== ENCOUNTER → 2021-02-24 | Outpatient (CLI) | payer MEDICARE, MEDICAID ==
[2021-02-24 13:20] VITALS: BP 114/57
--- NOTE | 2021-02-25 09:10 | KCIC ---
Bilateral digital screening 2-D and 3-D (digital breast tomosynthesis) mammograms with CAD Reason for examination: Routine screening. Comparison: Mammograms from 01/29/2020 and 12/16/2018. Findings: Breast density: Category C. The breasts are heterogeneously dense, which may obscure small masses. On the right CC 3-D images (best seen on slice 25/63), there are 2 small oval asymmetries. These are at approximately the 9:00 position, 2 cm from the nipple, at middle depth, and in the posterior centr al right breast slightly lateral to the nipple line. These measure 8 mm and 5 mm respectively. No oth er discrete breast mass is seen. There are no malignant appearing calcifications or architectural dis tortion. Impression: 2 small oval asymmetries in the 3:00 posterior central aspect of the right breast. Further evaluation with the right breast ultrasound is recommended. ASSESSMENT: BI-RADS 0. Incomplete. Additional imaging is recommended. Recommendations: Right breast ultrasound. The patient will be contacted with results and done scheduled for follow-up ultrasound. This patient' s information has been entered into a reminder system for the patient to be notified with the results of her examination by mail and a target date for the next mammogram. Your patient's mammogram demonstrates that she has dense breast tissue (breast density category C or D), which could hide abnormalities, and if she has other risk factors for breast cancer that have bee n identified, she might benefit from supplemental screening tests that may be suggested by you as her ordering physician. Dense breast tissue, in and of itself, is a relatively common condition. Therefo re, this information is not provided to cause undue concern, but rather to raise your awareness and t o promote discussion with your patient regarding the presence of other risk factors, in addition to d ense breast tissue. Electronically signed by: Jeanette Pinon MD (02/25/2021 9:08 AM) [id number]
== END ==
LOC: KCIC MAMMO 15:02
PROVIDERS: ATTEND Family Medicine
DX: Z12.31 Encounter for screening mammogram for malignant neoplasm of breast (principal)
CPT/HCPCS: 77063; 77067

== ENCOUNTER → 2021-03-15 | Outpatient (CLI) | payer MEDICARE, MEDICAID ==
[2021-03-14 10:09] VITALS: BP 118/69
--- NOTE | 2021-03-15 13:06 | KCIC ---
PROCEDURE: Targeted right breast ultrasound INDICATION: Abnormal mammogram with 2 small oval asymmetries in the 3:00 posterior central right [address]. COMPARISON: Mammogram from 02/24/2021. The area of interest on mammogram, lateral aspect of the right breast, and axilla were imaged. In the 9:00 position, 2 cm from the nipple, there is 7 mm simple cyst. In the 10:00 position, 2 cm ni pple, there is a 1.3 cm simple cyst. These are correlates for the oval asymmetries seen on mammogram. The right axilla shows no adenopathy. IMPRESSION: There are 2 cysts in the outer right breast which correlate with masses seen on mammogram . ASSESSMENT: BI-RADS 2. Benign findings. RECOMMENDATION: Routine screening mammograms. Electronically signed by: Jeanette Pinon MD (03/15/2021 1:04 PM) [id number]
== END ==
LOC: KCIC US 12:31
PROVIDERS: ATTEND Family Medicine
DX: N60.01 Solitary cyst of right breast (principal)
CPT/HCPCS: 76641

== ENCOUNTER → 2021-07-27 | Outpatient (CLI) | payer MEDICARE, MEDICAID ==
[~2021-07-27] MED LIST changes: +CYCL10TA19 PO; -CYCL10TA2 PO; +TIZA-75 PO; -TIZA4TAB2 PO
[2021-07-27 12:49] VITALS: BP 116/70
--- NOTE | 2021-07-27 14:10 | RAD ---
EXAM: Left breast diagnostic mammogram with tomosynthesis; left breast sonogram. HISTORY: 46-year-old female presents with left breast pain. TECHNIQUE: Full-field digital craniocaudal and mediolateral oblique 2D and 3D tomosynthesis images of the left breast are obtained for evaluation. Computer aided detection was applied. Sonographic imagi ng of the left breast was also performed. COMPARISON: 03/15/2021, 02/24/2021, 01/29/2020 BREAST PARENCHYMAL DENSITY: Level C - Heterogeneously dense. FINDINGS: There is no new suspicious mass, microcalcification or region of architectural distortion. Sonographic imaging of the left breast demonstrates no suspicious finding. IMPRESSION: 1. No new suspicious mammographic or sonographic finding. Continued clinical follow-up of palpable ab normalities is recommended. 2. BI-RADS Category 2: Benign finding(s). RECOMMENDATION: Bilateral mammography in 7 months is recommended to correspond with the previously es tablished bilateral mammography interval. If your mammogram demonstrates that you have dense breast tissue, which could hide abnormalities, and if you have other risk factors for breast cancer that have been identified, you might benefit from s upplemental screening tests that may be suggested by your ordering physician. Dense breast tissue, i n and of itself, is a relatively common condition. This information is not provided to cause undue c oncern, but rather to raise your awareness and to promote discussion with your physician regarding th e presence of other risk factors, in addition to dense breast tissue. A report of your mammography re sults will be sent to you and your physician. You should contact your physician if you have any ques tions or concerns regarding this report. Mammography is a sensitive method for finding small breast cancers, but it does not detect them all a nd is not a substitute for careful clinical examination. A negative mammogram does not negate a clin ically suspicious finding and should not result in delay in biopsying a clinically suspicious abnorma lity. PQRS compliance statement - Patient information was entered into a reminder system with a target due date for the next mammogram. "Our facility is accredited by the [employer] Mammography Program." Electronically signed by: Oksana Phan MD (07/27/2021 2:08 PM) [id number]
== END ==
LOC: MAMMO 13:11
PROVIDERS: ATTEND Family Medicine
DX: N64.4 Mastodynia (principal)
CPT/HCPCS: 76641; 77065; G0279; 77061